=== PATIENT | female | born 1970 | race African-American/Black ===

== ENCOUNTER 2023-10-24 15:37 | Emergency (ER) | payer MEDICAID ==
[~2023-10-24] VITALS: Ht 167.6 cm; Wt 74.0 kg
[2023-10-24 15:53] VITALS: BP 152/71; PULSE 84; RESP 20; TEMP 98.3; O2SAT 100
== END 2023-10-24 19:58 | disposition left against medical advice (07) ==
LOC: ER 15:37
DX: K59.00 Constipation, unspecified (principal); Z53.21 Procedure and treatment not carried out due to patient leaving prior to being seen by health care provider
CPT/HCPCS: 99281